=== PATIENT | female | born 1970 | race Caucasian/White ===

== ENCOUNTER 2022-09-26 13:22 | Outpatient (CLI) | payer OTHER | END 2022-09-26 13:23 | disposition home or self-care (01) | LOC: CSHMAMMO 13:22 | PROVIDERS: ATTEND Nurse Practitioner | DX: Z12.31 Encounter for screening mammogram for malignant neoplasm of breast (principal); Z98.890 Other specified postprocedural states; Z98.82 Breast implant status | CPT/HCPCS: 77063; 77067 ==

== ENCOUNTER 2023-01-16 13:54 | Outpatient (CLI) | payer BC | END 2023-01-16 13:55 | disposition home or self-care (01) | LOC: CSHMAMMO 13:54 | PROVIDERS: ATTEND Nurse Practitioner | DX: N63.11 Unspecified lump in the right breast, upper outer quadrant (principal) | CPT/HCPCS: G0279 ==